=== PATIENT | male | born 1995 | race Two or more races ===

== ENCOUNTER 2019-02-26 03:32 | Emergency (ER) | payer SELFPAY ==
[~2019-02-26] VITALS: Ht 167.6 cm; Wt 59.9 kg
[2019-02-26 03:56] VITALS: BP 116/68
[2019-02-26] MEDS ORDERED: GELATIN SPONGE,ABSORBABLE 1 SPONGE SPONGE TP ONE (04:09)
== END 2019-02-26 04:22 | disposition home or self-care (01) ==
LOC: ER 03:37
DX: S61.011A Laceration without foreign body of right thumb without damage to nail, initial encounter (principal); W26.0XXA Contact with knife, initial encounter; Y93.89 Activity, other specified; Y92.090 Kitchen in other non-institutional residence as the place of occurrence of the external cause; Y99.8 Other external cause status
CPT/HCPCS: 99283; A6403